=== PATIENT | male | born 1980 | race Caucasian/White ===

== ENCOUNTER 2017-08-02 15:29 | Emergency (ER) | payer BC ==
--- NOTE | 2017-08-02 15:50 | EDM.PDOC ---
ED HPI GENERAL MEDICAL PROBLEM - General Chief Complaint: Genitourinary Problem Stated Complaint: LOWER ABDOMINA PAIN/PAINFUL URINATION Time Seen by Provider: 08/02/17 15:30 Source of Information: Reports: Patient History Limitations: Reports: No Limitations - History of Present Illness INITIAL COMMENTS - FREE TEXT/NARRATIVE: Patient comes into the emergency department with complaints of urinary retention , frequency, hesitancy ,and burning. The symptoms started approximately 24 hours ago. Patient has had an autoimmune disease and his doctors at [place] have told him that any signs of infection he needs present to the clinic and be evaluated. Patient denies any fever, drainage, swelling, foul smell, back pain/ flank pain or discomfort perineum area. Denies having any new sexual partners. He is in monogamous relationship. The discomfort and pain have progressed through the day. Not wanting to wait till Friday he presented to the ER for further evaluation. Onset: Sudden - Related Data Allergies Allergy/AdvReac Type Severity Reaction Status Date / Time No Known Allergies Allergy Verified 08/02/17 15:39 Home Meds: Home Meds Adalimumab [Humira] 40 units SQ ASDIRECTED 08/02/17 [History] ED ROS GENERAL - Review of Systems Review Of Systems: See Below Constitutional: Reports: No Symptoms HEENT: Reports: No Symptoms Respiratory: Reports: No Symptoms Cardiovascular: Reports: No Symptoms Endocrine: Reports: No Symptoms GI/Abdominal: Reports: No Symptoms : Reports: Dysuria, Frequency, Hematuria, Urgency, Urinary Retention. Denies : Discharge, Flank Pain Musculoskeletal: Reports: No Symptoms Skin: Reports: No Symptoms Neurological: Reports: No Symptoms ED EXAM, RENAL/ - Physical Exam Exam: See Below Exam Limited By: No Limitations General Appearance: Alert, WD/WN, No Apparent Distress Respiratory/Chest: No Respiratory Distress, Lungs Clear Cardiovascular: Normal Peripheral Pulses, Regular Rate, Rhythm GI/Abdominal: Normal Bowel Sounds, Soft, No Distention, No Abnormal Bruit (Male) Exam: No Hernia, Normal Inspection, Circumcised. No: Rash, Scrotal Swelling, Scrotum Tenderness (L), Testicular Tenderness (R), Urethral Discharge Back Exam: Normal Inspection, Full Range of Motion Extremities: Normal Inspection, Normal Range of Motion, Non-Tender, Normal Capillary Refill Neurological: Alert, Oriented, CN II-XII Intact, Normal Cognition Psychiatric: Normal Affect, Normal Mood Course - Vital Signs Last Recorded V/S: Last Vital Signs Temp 35.9 C 08/02/17 15:30 Pulse 86 08/02/17 15:30 Resp 16 08/02/17 15:30 BP 114/68 08/02/17 15:30 Pulse Ox 98 08/02/17 15:30 - Orders/Labs/Meds Orders: Active Orders 24 hr Category Date Time Status Abdomen Pelvis w Cont [CT] Stat Exams 08/02/17 16:14 Taken Labs: Laboratory Tests 08/02/17 08/02/17 08/02/17 Range/Units 15:50 16:23 16:23 WBC 7.4 (4.0-10.0) x10^3/uL RBC 4.86 (4.5-6.0) x10^6/uL Hgb 14.9 (14.0-18.0) g/dL Hct 43.1 (40.0-52.0) % MCV 88.7 (78.0-93.0) fL MCH 30.7 (26.0-32.0) pg MCHC 34.6 (32.0-36.0) g/dL RDW Coeff of Christiano 13.4 (10.0-15.0) % Plt Count 258 (130-400) x10^3/uL Neut % (Auto) 45.9 L (50.0-80.0) % Lymph % (Auto) 39.3 (25.0-50.0) % Smyth % (Auto) 10.5 (2.0-11.0) % Eos % (Auto) 3.8 (0.0-4.0) % Baso % (Auto) 0.5 (0.2-1.2) % Sodium 141 (136-145) mmol/L Potassium 4.4 (3.5-5.1) mmol/L Chloride 104 (98-107) mmol/L Carbon Dioxide 25 (21-32) mmol/L Anion Gap 16.4 (10-20) mmol/L BUN 16 (7-18) mg/dL Creatinine 1.2 (0.70-1.30) mg/dL Est Cr Clr Drug Dosing TNP Estimated GFR (MDRD) > 60 Glucose 109 H (74-106) mg/dL Calcium 9.2 (8.5-10.1) mg/dL Corrected Calcium 9.28 (8.5-10.1) mg/dL Total Bilirubin 0.3 (0.2-1.0) mg/dL AST 10 L (15-37) U/L ALT 20 (16-63) U/L Alkaline Phosphatase 64 (46-116) U/L Total Protein 7.7 (6.4-8.2) g/dL Albumin 3.9 (3.4-5.0) g/dL Globulin 3.8 Albumin/Globulin Ratio 1.03 Urine Color Yellow (YELLOW) Urine Appearance Clear (CLEAR) Urine pH 7.0 (5.0-8.0) Ur Specific [place] 1.020 Urine Protein Negative (NEGATIVE) mg/dL Urine Glucose (UA) Negative (NEGATIVE) mg/dL Urine Ketones Negative (NEGATIVE) mg/dL Urine Occult Blood Negative (NEGATIVE) Urine Nitrite Negative (NEGATIVE) Urine Bilirubin Negative (NEGATIVE) Urine Urobilinogen 0.2 (0.2) EU/dL Ur Leukocyte Esterase Negative (NEGATIVE) Urine RBC Not seen (NOT SEEN) /HPF Urine WBC Not seen (NOT SEEN) /HPF Ur Squamous Epith Cells Rare (NEGATIVE) /HPF Urine Bacteria Not seen (NEGATIVE) /HPF Urine Mucus Not seen (NEGATIVE) /LPF Departure - Departure Time of Disposition: 18:00 Disposition: Home, Self-Care 01 Condition: Good Clinical Impression: Urethral irritation - Discharge Information Instructions: Urinary Frequency, Adult, Pain Medicine Instructions, Easy-to- Read Forms: ED Department Discharge Additional Instructions: 1. Can get over the counter AZO for pain and urethral discomfort 2. Can take Tylenol and ibuprofen for pain 3. Activity and diet as tolerated 4. Increase water intake 5. Decrease sodium intake 6. Avoid SEXUAL activities for the next 24-48 hours to reduce irritation 7. If fever, blood in the urine, or flank pain develop please see her primary care provider as soon as possible - Problem List Review Problem List Initiated/Reviewed/Updated: Yes - My Orders Last 24 Hours: My Active Orders 08/02/17 16:14 Abdomen Pelvis w Cont [CT] Stat - Assessment/Plan Last 24 Hours: My Active Orders 08/02/17 16:14 Abdomen Pelvis w Cont [CT] Stat Assessment:: 1. Urinary retention/hesitancy 2. Urinary frequency/burning 3. Chronic autoimmune disorder Plan: 1. U/A results reviewed and discussed with the pt 2. With pt's history of autoimmune disorder and being on bactrim. Will draw labs and order CT of abdomen due to sxs and urine negative. 3. CT completed. Results reviewed no explanation for urinary frequency hesitancy 4. Education provided to the patient to get OTC azo for pain 5. He is advised to follow up with PCP if symptoms continue or are worsening 6. Patient is on Bactrim chronically. If he does have the start of UTI that we are not vet visible on exam. Hopefully the Bactrim will help alleviate any type of infection forming.
[2017-08-02 16:49] LABS: CHLORIDE,CL 104 mmol/L (98-107); SODIUM,NA 141 mmol/L (136-145)
== END 2017-08-02 18:01 | disposition home or self-care (01) ==
LOC: VM.ED 15:29
DX: N36.8 Other specified disorders of urethra (principal); D89.89 Other specified disorders involving the immune mechanism, not elsewhere classified
CPT/HCPCS: 36415; 74177; 80053; 81001; 85025; 99284